=== PATIENT | male | born 1950 | race Caucasian/White ===

== ENCOUNTER → 2021-03-05 | Outpatient (CLI) | payer MEDICARE, MEDICAID ==
--- NOTE | 2021-03-05 11:37 | Diagnostic Imaging Report ---
PROCEDURE: CT chest with contrast only. TECHNIQUE: Multiple contiguous axial images were obtained through the chest after administration of intravenous contrast. Auto Exposure Controls were utilized during the CT exam to meet ALARA standards for radiation dose reduction. INDICATION: Lung nodule. Chronic cough. Smoker No prior studies are available for comparison. There is a 1 cm calcified granuloma in the superior segment of the right lower lobe and slightly smaller calcified granuloma in the right upper lobe. No suspicious mass or infiltrate is seen. There is no effusion or pneumothorax. There are calcified mediastinal lymph nodes present. No suspicious lymphadenopathy is seen. No acute bony abnormality is seen. Images of the upper abdomen shows hydronephrosis of the right kidney which is incompletely visualized. There are nonobstructive stones seen in both kidneys and there may be a ureteral calculus present that is not visualized on this study. IMPRESSION: There are changes of old granulomatous disease in the chest with no suspicious mass or infiltrate seen. There is bilateral nephrolithiasis with right-sided hydronephrosis. Dictated by: Dictated on workstation # [id number]
== END ==
LOC: RAD 11:15
DX: R91.1 Solitary pulmonary nodule (principal); N13.2 Hydronephrosis with renal and ureteral calculous obstruction; R05.3 Chronic cough; F17.200 Nicotine dependence, unspecified, uncomplicated
CPT/HCPCS: 71260